=== PATIENT | male | born 1970 | race Caucasian/White ===

== ENCOUNTER 2016-02-11 16:15 | Emergency (ER) | payer MEDICAID | END 2016-02-11 18:17 | disposition home or self-care (01) | LOC: D.ER 16:15 | DX: S63.611A Unspecified sprain of left index finger, initial encounter (principal); W19.XXXA Unspecified fall, initial encounter; Y93.89 Activity, other specified; Y92.410 Unspecified street and highway as the place of occurrence of the external cause; K58.9 Irritable bowel syndrome, unspecified ==

== ENCOUNTER → 2019-04-02 12:03 | Outpatient (CLI) | payer OTHER ==
--- NOTE | 2019-04-03 15:10 | ST ---
PATIENT:LAURO PACHECO MEDICAL RECORD: [id number] SEX: M LOCATION:[facility] ORDER #: ADMISSION DATE: 04/02/19 AGE OF PATIENT: 48 REFERRING PHYSICIAN: INTERPRETING PHYSICIAN: JAMES GAMA MD DATE OF SERVICE: 04/02/2019 PROCEDURE: Treadmill stress test. Baseline ECG is normal. Exercised for 6 minutes on Guillermo protocol, maximum heart rate 124 beats per minute, less than 85% of max predicted. No ECG change for ischemia. No symptom of ischemia. Normal blood pressure response to exercise. No arrhythmias noted. Fair exercise tolerance for age. Negative, although submax treadmill stress test. TRANSINT:[id number] Voice Confirmation ID: [id number] DOCUMENT ID: [id number] JAMES GAMA MD at 1510 CC: [id number] DICTATION DATE: 04/03/19 1303 PRINTING MACHINIST: 04/03/19 1321 DEP CLI 04/02/19 [id number] [place] [id number]
== END | disposition home or self-care (01) ==
LOC: D.HCCARDIO 12:03
PROVIDERS: ATTEND Internal Medicine Interventional Cardiology
DX: I20.9 Angina pectoris, unspecified (principal)